=== PATIENT | female | born 1965 | race Caucasian/White ===

== ENCOUNTER 2016-05-13 14:03 | Emergency (ER) | payer OTHER ==
[~2016-05-13] VITALS: Ht 172.7 cm; Wt 85.3 kg
[~2016-05-13 14:03] MED LIST: AMLODIPINE BESY10 MG PO; CYMBALTA60 MG PO; IMITREX25 MG PO; PERCOCET 5/31 TABLET PO; WELLBUTRIN XL300 MG PO; ZANTAC150 MG PO; ZOFRAN ODT4 MG PO
[2016-05-13 15:08] LABS: HEMATOCRIT 42.6 % (36.0-46.0); MCHC 34.3 G/DL (30.0-36.0); MCV 90.4 FL (83-99); MEAN PLAT.VOLUME 10.1 uM^3 (9.5-12.4); PLATELET COUNT 252 K/uL (156-360); RBC DIS.WIDTH-CV 11.8 % (11.8-14.6); RED BLOOD COUNT 4.71 M/uL (3.80-5.20); WHITE BLOOD COUNT 6.8 K/uL (4.1-10.2)
[2016-05-13 15:18] LABS: CHLORIDE 109 mEq/L (99-109); POTASSIUM 3.9 mEq/L (3.7-5.4); SODIUM 139 mEq/L (136-147)
[2016-05-13 15:20] LABS: GLUCOSE 104 mg/dL (70-99)
[2016-05-13 15:21] LABS: ANION GAP 8 MEQ/L (2-14)
[2016-05-13 15:23] LABS: SERUM ETHYL ALCOHOL < 10 mg/dL
[2016-05-13 15:24] LABS: GFR ESTIMATE (CALCULATED) > 59 mL/min/
[2016-05-13 15:25] LABS: UREA NITROGEN (BUN) 9 mg/dL (9-23)
[2016-05-13 19:03] LABS: THC CANNABINOIDS PRESUMPTIVE POSITIVE (50 ng/mL)
[2016-05-13 19:04] LABS: ADD MEDTOX COMMENT Y; AMPHETAMINE NEGATIVE (500 ng/mL); BARBITURATES NEGATIVE (200 ng/mL); BENZODIAZEPINES PRESUMPTIVE POSITIVE (150 ng/mL); COCAINE NEGATIVE (150 ng/mL); INTERNAL CONTROLS VALID? YES; METHADONE NEGATIVE (200 ng/mL); METHAMPHETAMINE NEGATIVE (500 ng/mL); OPIATES (MORPHINE) PRESUMPTIVE POSITIVE (100 ng/mL); OXYCODONE NEGATIVE (100 ng/mL); PHENCYCLIDINE NEGATIVE (25 ng/mL); PROPOXYPHENE NEGATIVE (300 ng/mL); TRICYCLIC ANTIDEPRESSANTS NEGATIVE (300 ng/mL)
[2016-05-13 19:37] LABS: OPIATES QUANTITATIVE VALUE 0 NG/ML
[2016-05-13 19:39] LABS: BENZODIAZEPINES, URINE SCREEN POSITIVE (200 ng/mL)
[2016-05-13 20:02] VITALS: BP 128/83
== END 2016-05-13 20:03 ==
LOC: EME 14:03
PROVIDERS: Emergency Medicine
DX: F33.2 Major depressive disorder, recurrent severe without psychotic features (principal); R45.851 Suicidal ideations; I10 Essential (primary) hypertension; K21.9 Gastro-esophageal reflux disease without esophagitis
CPT/HCPCS: 80048; 84999; 85027; 99281; 99285; G0480